=== PATIENT | female | born 2005 | race Caucasian/White ===

== ENCOUNTER 2023-09-20 05:01 | Outpatient (CLI) | payer MEDICAID, SELFPAY ==
[2023-09-20 08:57] LABS: HCT 45.9 % (36.0-46.0); HGB 15.5 g/dL (11.2-15.7); MCH 31.8 pg (27.0-33.0); MCHC 33.8 % (32.0-36.0); MCV 94 fL (80-95); MPV 9.9 fL (8.0-11.0); Platelet Count 280 10^3/uL (130-400); RBC 4.88 10^6/uL (3.93-5.22); RDW 11.6 % (11.7-14.6); RDW-SD 40.1 fL; WBC 5.53 10^3/uL (4.4-10.8)
[2023-09-20 09:31] LABS: ALT 25 U/L (14-59); AST 13 U/L (15-37); Albumin 4.1 g/dL (3.4-5.0); Alkaline Phosphatase 87 U/L (46-116); Anion Gap 3.9 mmol/L (3-11); BUN 16 mg/dL (7-18); Bilirubin, Total 0.5 mg/dL (0.2-1.0); CO2 27.1 mmol/L (21.0-32.0); CREATININE 0.8 mg/dL (0.55-1.02); Calcium 9.4 mg/dL (8.5-10.1); Calculated LDL 99 mg/dL (<100); Chloride 108 mmol/L (98-107); Cholesterol 186 mg/dL (<200); Estimated GFR 108.11 (mL/min/1.73m2); Glucose 95 mg/dL (74-106); HDL Cholesterol 77 mg/dL (40-60); Potassium 4.1 mmol/L (3.5-5.1); Sodium 139 mmol/L (136-145); Total Protein 7.5 g/dL (6.4-8.2); Triglyceride 52 mg/dL (<150)
[2023-09-20 09:53] LABS: Vitamin D 25 Total 39.6 ng/mL (30-100)
== END 2023-09-20 05:02 | disposition home or self-care (01) ==
LOC: LBO 05:01
PROVIDERS: PCP Student in an Organized Health Care Education/Training Program; Visit Provider Student in an Organized Health Care Education/Training Program
DX: Z13.220 Encounter for screening for lipoid disorders (principal); Z86.39 Personal history of other endocrine, nutritional and metabolic disease; E78.1 Pure hyperglyceridemia; Z13.1 Encounter for screening for diabetes mellitus
CPT/HCPCS: 36415; 80053; 80061; 82306; 85027

== ENCOUNTER 2023-12-21 02:58 | Outpatient (CLI) | payer MEDICAID, SELFPAY ==
--- NOTE | 2023-12-21 08:45 | DI.CT_ITS ---
Exam(s) CT SINUS WO EXAM: CT SINUS WO CLINICAL HISTORY: long standing left-sided nasal congestion,R09.81. Evaluate for sinusitis. TECHNIQUE: Imaging Protocol: Axial computed tomography images with coronal and sagittal reformatted images were created and reviewed. COMPARISON: No exams were available for comparison FINDINGS: Frontal sinuses: Normally aerated. Ethmoid air cells: Normally aerated. Maxillary sinuses: Minimal mucosal thickening. Sphenoid sinus: Normally aerated. Ostiomeatal complexes: Patent. Nasal cavity: Septum is deviated toward the right. No trent bullosa. No visible nasal polyps or th ickening of the turbinates. Visualized regional soft tissues: No acute findings. Orbits: Unremarkable. Bones: Unremarkable. Mastoid Air Cells: Normally aerated. Visualized portions of the brain: Unremarkable as visualized. IMPRESSION: Minimal maxillary sinus mucosal thickening. RADIATION DOSE DELIVERED: Total DLP DATA REPOSITORY: All CT scans at this facility are submitted to the National Radiology Data Registry (NRDR) Dose Index Registry (DIR) with the [employer] ([employer]). RADIATION OPTIMIZATION: All CT scans at this facility use at least one of these dose optimization te chniques: automated exposure control; mA and/or kV adjustment per patient size (includes targeted exa ms where dose is matched to clinical indication); or iterative reconstruction.
== END 2023-12-21 03:18 ==
LOC: DI 02:59
PROVIDERS: PCP Student in an Organized Health Care Education/Training Program; Visit Provider Registered Nurse Maternal Newborn
DX: R09.81 Nasal congestion (principal)
CPT/HCPCS: 70486

== ENCOUNTER 2024-03-01 02:46 | Outpatient (CLI) | payer MEDICAID, SELFPAY ==
[2024-03-01 13:20] LABS: HCT 43.8 % (36.0-46.0)
[2024-03-05 12:55] LABS: Testosterone, Total 238 ng/dL (8-60)
== END 2024-03-01 02:47 | disposition home or self-care (01) ==
LOC: LBO 02:48
PROVIDERS: PCP Student in an Organized Health Care Education/Training Program; Visit Provider Physician Assistant
DX: F64.9 Gender identity disorder, unspecified (principal)
CPT/HCPCS: 36415; 84403; 85014; 85018

== ENCOUNTER 2024-06-07 01:14 | Outpatient (CLI) | payer MEDICAID, SELFPAY ==
[2024-06-07 13:37] LABS: HCT 46.4 % (36.0-46.0); HGB 15.6 g/dL (11.2-15.7)
[2024-06-11 16:40] LABS: Testosterone, Total 256 ng/dL (8-60)
== END 2024-06-07 01:15 | disposition home or self-care (01) ==
LOC: LBO 01:14
PROVIDERS: PCP Student in an Organized Health Care Education/Training Program; Visit Provider Physician Assistant
DX: F64.9 Gender identity disorder, unspecified (principal)
CPT/HCPCS: 36415; 84403; 85014; 85018

== ENCOUNTER 2024-08-30 02:58 | Outpatient (CLI) | payer MEDICAID, SELFPAY ==
[2024-08-30 16:29] LABS: HGB 15.7 g/dL (11.2-15.7)
[2024-09-07 01:35] LABS: Testosterone, Total 258 ng/dL (8-60)
== END 2024-08-30 02:59 | disposition home or self-care (01) ==
LOC: LBO 02:58
PROVIDERS: PCP Student in an Organized Health Care Education/Training Program; Visit Provider Physician Assistant
DX: F64.9 Gender identity disorder, unspecified (principal)
CPT/HCPCS: 36415; 84403; 85014; 85018

== ENCOUNTER 2024-12-06 01:10 | Outpatient (CLI) | payer MEDICAID, SELFPAY ==
[2024-12-06 13:56] LABS: HCT 46.5 % (36.0-46.0); HGB 15.8 g/dL (11.2-15.7)
== END 2024-12-06 01:11 | disposition home or self-care (01) ==
LOC: LBO 01:10
PROVIDERS: PCP Student in an Organized Health Care Education/Training Program; Visit Provider Physician Assistant
DX: F64.9 Gender identity disorder, unspecified (principal)
CPT/HCPCS: 36415; 84403; 85014; 85018

== ENCOUNTER 2025-03-28 02:21 | Outpatient (CLI) | payer MEDICAID, SELFPAY ==
[2025-03-28 16:24] LABS: HCT 42.5 % (36.0-46.0); HGB 14.4 g/dL (11.2-15.7)
== END 2025-03-28 02:22 | disposition home or self-care (01) ==
LOC: LBO 02:22
PROVIDERS: PCP Student in an Organized Health Care Education/Training Program; Visit Provider Physician Assistant
DX: F64.9 Gender identity disorder, unspecified (principal)
CPT/HCPCS: 36415; 84403; 82670; 85014; 85018